=== PATIENT | male | born 1965 | race Caucasian/White ===

== ENCOUNTER 2016-09-18 23:13 | Emergency (ER) | payer OTHER ==
[~2016-09-18] VITALS: Ht 182.9 cm; Wt 82.0 kg
[2016-09-18 23:14] VITALS: BP 121/69; PULSE 87; RESP 16; TEMP 97.6; O2SAT 97
[2016-09-18] MEDS ORDERED: PRED20 PO (23:36)
[2016-09-18] MEDS ORDERED: TRIA.1%T TOPICAL (23:36)
[2016-09-18] MEDS ORDERED: CETI10 PO (23:36)
--- NOTE | 2016-09-18 23:37 | PD ---
HPI Chief Complaint: Skin Problem Time Seen by Provider: 23:28 Travel History International Travel<30 days: No Contact w/Intl Traveler<30days: No Traveled to known affect area: No History of Present Illness HPI Patient is a 51-year-old male presenting to emergency for evaluation of a rash to his arms, legs, back, chest. Patient states it's been there for approximately one month, he reports that is very itchy and has been using Gold Toth itch cream as well as topical hydrocortisone cream. He states that the Gold Toth cream does help alleviate the itching. Patient lives with his , she has no rash on her. Patient states that his is been using Garry fabric softener for few weeks which is new for him, he normally they do not use this type of product due to his allergies. He denies any shortness of breath or wheezing. He does report environmental allergens. PFSH Past Medical History Cardiovascular Problems: Yes High Cholesterol: Yes (used to be on meds) Congestive Heart Failure: No Diabetes: No Diminished Hearing: No Immunizations Current: Yes Triglycerides - High: Yes Tetanus Vaccination: < 5 Years Influenza Vaccination: No Social History Alcohol Use: No (QUIT 5 YEARS AGO) Tobacco Use: Yes (1 04/03 PPD) Substance Use: No (SOBER FOR 15 YEARS) Allergies-Medications (Allergen,Severity, Reaction): Coded Allergies: No Known Allergies (Unverified , 09/18/16) Reported Meds & Prescriptions Reported Meds & Active Scripts Active No Active Prescriptions or Reported Medications Review of Systems Except as stated in HPI: all other systems reviewed are Neg Skin: Positive Rash, Positive Itching, Positive Hives Physical Exam Narrative GENERAL: Well-nourished, well-developed patient. SKIN: Focused skin assessment warm/dry. Maculopapular lesions to upper arms, back, thighs and lower legs. There are scattered hives noted to patient's back. Excoriations noted to upper arms. No sign of a secondary skin infection noted. HEAD: Normocephalic. EYES: No scleral icterus. No injection or drainage. NECK: Supple, trachea midline. No JVD or lymphadenopathy. CARDIOVASCULAR: Regular rate and rhythm without murmurs, gallops, or rubs. RESPIRATORY: Breath sounds equal bilaterally. No accessory muscle use. GASTROINTESTINAL: Abdomen soft, non-tender, nondistended. MUSCULOSKELETAL: No cyanosis, or edema. BACK: Nontender without obvious deformity. No CVA tenderness. Data Data Last Documented VS Vital Signs Date Time Temp Pulse Resp B/P Pulse Ox O2 Delivery O2 Flow Rate FiO2 09/18/16 23:18 16 09/18/16 23:14 97.6 87 121/69 97 [facility] Medical Decision Making Medical Screen Exam Complete: Yes Emergency Medical Condition: Yes Interpretation(s) Vital Signs Date Time Temp Pulse Resp B/P Pulse Ox O2 Delivery O2 Flow Rate FiO2 09/18/16 23:18 16 09/18/16 23:14 97.6 87 16 121/69 97 Differential Diagnosis Contact dermatitis versus scabies versus allergic reaction versus other Narrative Course Patient is a 51-year-old male presenting for evaluation of a pruritic rash. Rash is localized under patient's clothing, this would be consistent with use of new fabric softener for the last few weeks. Rest does not appear consistent with scabies, additionally patient's has no rash and they share a bed. Patient will be treated with oral steroids, cetirizine and a short course of topical steroid cream. He was advised to avoid use of fabric softener. He was advised to follow-up with his primary doctor. He was encouraged to return to emergency department for any new or worsening symptoms. Patient verbalized understanding of instructions. Patient is stable for discharge. 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 Referrals: Primary Care Physician 1 week Patient Instructions: Contact Dermatitis (ED), General Instructions Additional Instructions: Follow-up with your primary doctor Avoid use of fabric softener, perfumed detergents Use medications as directed Only used topical steroid cream sparingly for 3-5 days only Return to emergency department for any new or worsening symptoms Med/Other Pt SpecificInfo: Prescription(s) given Scripts Cetirizine 10 Mg Tab10 Mg PO HS 30 Days Ref 0 Prov:Blanca Mathews 09/18/16 Prednisone 20 Mg Tab40 Mg PO DAILY 5 Days Ref 0 Take 40 mg (2 tablets) daily for 5 days Prov:Blanca Mathews 09/18/16 Triamcinolone Topical 0.1% Cream1 Applic TOPICAL BID PRN (RASH) #60 GM Ref 0 Prov:Blanca Mathews 09/18/16 Disposition: 01 DISCHARGE HOME Condition: Stable Blanca Mathews Sep 18, 2016 23:37
[2016-09-19] MEDS ORDERED: CETIRIZINE HCL 10 MG TAB PO ONE
[2016-09-19] MEDS ORDERED: predniSONE 50 MG TAB PO ONE
== END 2016-09-19 00:19 | disposition home or self-care (01) ==
LOC: NEPK 23:13
DX: L23.89 Allergic contact dermatitis due to other agents (principal); E78.00 Pure hypercholesterolemia, unspecified; F17.210 Nicotine dependence, cigarettes, uncomplicated
CPT/HCPCS: 99284; J7512

== ENCOUNTER 2016-10-28 01:25 | Emergency (ER) | payer OTHER ==
[~2016-10-28] VITALS: Ht 182.9 cm; Wt 82.0 kg
[~2016-10-28 01:25] MED LIST: CETI10 PO; PRED20 PO; TRIA.1%T TOPICAL
[2016-10-28 01:27] VITALS: BP 149/123; PULSE 93; RESP 16; TEMP 97.9; O2SAT 97
[2016-10-28] MEDS ORDERED: PERM5CRE11 TOPICAL (02:13)
[2016-10-28] MEDS ORDERED: CETI10CH CHEW (02:13)
--- NOTE | 2016-10-28 02:13 | PD ---
HPI Chief Complaint: Skin Problem Time Seen by Provider: 02:11 Travel History International Travel<30 days: No Contact w/Intl Traveler<30days: No Traveled to known affect area: No History of Present Illness HPI 51-year-old male presents to the emergency department for pruritic rash affecting bilateral upper extremities and trunk. Symptoms are worsening over the past several days. Patient states had similar episode 3 weeks ago was treated with medication and symptoms resolved. Patient states while he was on treatment he did not stay at his current residence and had been gone for 3 weeks and when he return to the resident symptoms recurred. Patient did not clean the site prior to leaving or being treated. Patient denies other concerns or complaints. Patient is not aware of other persons with similar symptoms. Patient does not recall any specific exposure to any foods one linens pets furniture clothing detergents etc. for allergen exposure. Patient denies other concerns or complaints. Patient has taken no medications such as antipyretics Benadryl or other medicines to control pruritus. PFSH Past Medical History Narrative Medical Dyslipidemia; tobacco use: Nursing notes reviewed Cardiovascular Problems: Yes High Cholesterol: Yes (used to be on meds) Congestive Heart Failure: No Diabetes: No Diminished Hearing: No Immunizations Current: Yes Triglycerides - High: Yes Tetanus Vaccination: < 5 Years Influenza Vaccination: Yes Social History Alcohol Use: No (QUIT 12 YEARS AGO) Tobacco Use: Yes (1/2 PPD) Substance Use: No (SOBER FOR 21 YEARS) Allergies-Medications (Allergen,Severity, Reaction): Coded Allergies: No Known Allergies (Unverified , 09/18/16) Reported Meds & Prescriptions Reported Meds & Active Scripts Active Cetirizine (Cetirizine HCl) 10 Mg Chew 10 Mg CHEW DAILY Elimite Topical (Permethrin) 5% Cream 1 Applic TOPICAL ONCE Cetirizine (Cetirizine HCl) 10 Mg Tab 10 Mg PO HS 30 Days Prednisone 20 Mg Tab 40 Mg PO DAILY 5 Days Take 40 mg (2 tablets) daily for 5 days Triamcinolone Topical (Triamcinolone Acetonide) 0.1% Cream 1 Applic TOPICAL BID PRN Review of Systems Except as stated in HPI: all other systems reviewed are Neg General / Constitutional: No: Fever, Chills HENT: No: Congestion Cardiovascular: No: Chest Pain or Discomfort Respiratory: No: Shortness of Breath Gastrointestinal: No: Abdominal Pain Genitourinary: No: Decreased Urinary Output Musculoskeletal: No: Myalgias, Arthralgias Skin: Positive Rash, Positive Itching, No Hives Neurologic: No: Weakness Hematologic/Lymphatic: No: Lymph Node Enlargement Physical Exam Narrative GENERAL: Well-developed nourished male in no acute distress no respiratory distress SKIN: Warm and dry. Erythematous papular rash affecting the intertriginous areas to a lesser extent also affecting the extensor surface and trunk at the waist and axilla HEAD: Normocephalic. EYES: No scleral icterus. No injection or drainage. NECK: Supple, trachea midline. No JVD or lymphadenopathy. CARDIOVASCULAR: Regular rate and rhythm without murmurs, gallops, or rubs. RESPIRATORY: Breath sounds equal bilaterally. No accessory muscle use. GASTROINTESTINAL: Abdomen soft, non-tender, nondistended. MUSCULOSKELETAL: No cyanosis, or edema. BACK: Nontender without obvious deformity. No CVA tenderness. Data Data Last Documented VS Vital Signs Date Time Temp Pulse Resp B/P Pulse Ox O2 Delivery O2 Flow Rate FiO2 10/28/16 01:27 97.9 93 16 149/123 97 Room Air MDM Medical Decision Making Medical Screen Exam Complete: Yes Emergency Medical Condition: Yes Medical Record Reviewed: Yes Differential Diagnosis Contact dermatitis, bedbugs, scabies Narrative Course Patient with recent history of contact dermatitis and eczema at the emergency department at this time he has evidence of linear excoriated rash in the intertriginous regions and to a lesser extent sparingly to extensor surfaces concerning for scabies form type rash. Patient is return to location where previously had onset of rash without doing any type of cleaning or change in hygiene to prevent recurrence upon exposure. Patient will be started on Elimite. Diagnosis Primary Impression: Contact dermatitis Additional Impression: Scabies Referrals: Primary Care Physician 1 week Additional Instructions: Complete application of medication prescribed for scabies exposure Clean all areas of residence washing linens and disposing of possible contaminated items that will not be readily cleaned Follow-up with your primary care provider Return to the emergency department for any concerns or change in condition May use prescription cetirizine or [id number] Benadryl for pruritus Med/Other Pt SpecificInfo: Prescription(s) given Scripts Cetirizine 10 Mg Chew10 Mg CHEW DAILY #15 TAB Ref 0 Prov:Aditi Holm MD 10/28/16 Permethrin Topical (Elimite Topical)5% Cream1 Applic TOPICAL ONCE #1 TUBE Ref 0 Prov:Aditi Holm MD 10/28/16 Disposition: 01 DISCHARGE HOME Condition: Stable Aditi Holm MD Oct 28, 2016 02:13
== END 2016-10-28 02:41 | disposition home or self-care (01) ==
LOC: NEPC 01:25
DX: L25.9 Unspecified contact dermatitis, unspecified cause (principal); B86 Scabies; E78.00 Pure hypercholesterolemia, unspecified; E78.5 Hyperlipidemia, unspecified; Z72.0 Tobacco use; Z79.899 Other long term (current) drug therapy
CPT/HCPCS: 99283